=== PATIENT | female | born 1995 | race American Indian/Alaskan Native ===

== ENCOUNTER 2017-06-13 13:47 | Emergency (ER) | payer SELFPAY ==
[2017-06-13 14:12] VITALS: BP 130/84
[2017-06-13] MEDS ORDERED: MOTRIN PO ONE (15:05)
--- NOTE | 2017-06-13 15:07 | Emergency Department Report ---
ED Extremity Problem HPI - General Chief complaint: Extremity Injury, Lower Stated complaint: FOOT PAIN Time Seen by Provider: 06/13/17 14:46 Source: patient, family Mode of arrival: Ambulatory Limitations: No Limitations - History of Present Illness Initial comments: This is a very large obese female here complaining of swelling to her right foot 3 years. She says she's been to the ER and also be been to doctor's appointment and they did not do anything. She denies any history of x-ray to her right foot or ultrasound to her lower extremities. She says she has a doctor's appointment in August for chronic foot pain and swelling. Pain is 10 out of 10 worse with weightbearing and movement otherwise resting. She's been taking [id number] medication which helps a little. Patient says she came to the emergency room today because of increasing pain and she denies any previous trauma to her foot. Denies any redness or swelling, denies any laceration. She is also complaining of pain to the bottom number for right foot. Pain is achy. Denies any history of blood clots denies any control. Last menstrual period was 06/12/2017. Denies any shortness of breath or chest pain. MD Complaint: extremity pain, extremity swelling Onset/Timin -: year(s) Location: right, lower extremity (foot) History of Same: Yes -: No myalgia, Yes arthralgia, No fever, No associated dyspnea, No associated chest pain Radiation: none Severity scale (0 -10): 10 Quality: aching Consistency: constant Improves with: immobilization, medication, rest Worsens with: weight bearing, walking, exertion Associated Symptoms: arthralgias. denies: chest pain, shortness of breath, fever, myalgias, rash - Related Data Previous Rx's Medication Instructions Recorded Last Taken Type Cyclobenzaprine HCl [Flexeril 5 MG 5 mg PO Q8HR PRN #10 tab 10/13/15 Unknown Rx TAB] Ibuprofen [Motrin] 600 mg PO Q8H PRN #12 tablet 06/13/17 Unknown Rx Allergies Allergy/AdvReac Type Severity Reaction Status Date / Time No Known Allergies Allergy Verified 10/13/15 20:18 ED Review of Systems ROS: Stated complaint: FOOT PAIN Other details as noted in HPI Comment: All other systems reviewed and negative Constitutional: no symptoms reported Respiratory: no symptoms reported Cardiovascular: denies: chest pain, palpitations, dyspnea on exertion, edema, syncope, paroxysmal nocturnal dyspnea Gastrointestinal: denies: abdominal pain, nausea, vomiting Genitourinary: denies: dysuria, hematuria Musculoskeletal: joint swelling, arthralgia. denies: back pain, myalgia Skin: denies: rash Neurological: denies: headache, weakness, numbness, paresthesias, confusion, abnormal gait, vertigo ED Past Medical Hx - Past Medical History Previous Medical History?: Yes Hx Diabetes: Yes (boarderline) Hx Asthma: Yes - Surgical History Past Surgical History?: No - Family History Family history: no significant - Social History Smoking Status: Current Every Day Smoker Substance Use Type: None - Medications Home Medications: Home Medications Medication Instructions Recorded Confirmed Last Taken Type Cyclobenzaprine HCl [Flexeril 5 MG 5 mg PO Q8HR PRN #10 tab 10/13/15 Unknown Rx TAB] Ibuprofen [Motrin] 600 mg PO Q8H PRN #12 tablet 06/13/17 Unknown Rx ED Physical Exam - General Limitations: No Limitations General appearance: alert, in no apparent distress - Head Head exam: Present: atraumatic, normocephalic - Eye Eye exam: Present: normal appearance, PERRL, EOMI Pupils: Present: normal accommodation - ENT ENT exam: Present: normal exam, normal orophraynx, mucous membranes moist, TM's normal bilaterally, normal external ear exam - Neck Neck exam: Present: normal inspection, full ROM. Absent: tenderness, meningismus, lymphadenopathy - Respiratory Respiratory exam: Present: normal lung sounds bilaterally. Absent: respiratory distress, wheezes, rales, rhonchi, stridor, chest wall tenderness, accessory muscle use, decreased breath sounds, prolonged expiratory - Cardiovascular Cardiovascular Exam: Present: regular rate, normal rhythm, normal heart sounds. Absent: systolic murmur, diastolic murmur - GI/Abdominal GI/Abdominal exam: Present: soft, normal bowel sounds. Absent: distended, tenderness, rigid, organomegaly, mass, bruit, pulsatile mass, hernia - Extremities Exam Extremities exam: Present: full ROM, tenderness (right anterior foot), normal capillary refill, pedal edema (right anterior foot), other (abdomen and cyanosis. +2 pulses to all extremities. No neurovascular compromise). Absent : normal inspection, joint swelling, calf tenderness - Expanded Lower Extremity Exam Right Hip exam: Present: normal inspection, full ROM, pelvic stability. Absent: tenderness, swelling, abrasion, laceration, ecchymosis, deformity, crepidus, dislocation, erythema, external rotation, internal rotation, shortening Upper Leg exam: Present: normal inspection, full ROM. Absent: tenderness, swelling, abrasion, laceration, ecchymosis, deformity, crepidus, dislocation, erythema Knee exam: Present: normal inspection, full ROM, full knee extension. Absent: tenderness, swelling, abrasion, laceration, ecchymosis, deformity, crepidus, dislocation, erythema, effusion, pain w/ pronation/supination, posterior draw sign, pain/laxity with valgus, pain/laxity with varus Lower Leg exam: Present: normal inspection, full ROM. Absent: tenderness, swelling, abrasion, laceration, ecchymosis, deformity, crepidus, dislocation, erythema, palpable cord, Sujey's sign Ankle exam: Present: normal inspection, full ROM. Absent: tenderness, swelling , abrasion, laceration, ecchymosis, deformity, crepidus, dislocation, erythema Foot/Toe exam: Present: full ROM, tenderness (right anterior foot), swelling ( right dorsal aspect of foot). Absent: normal inspection, abrasion, laceration, ecchymosis, deformity, crepidus, dislocation, erythema, amputation, puncture wound, foreign body, calcaneal tenderness, tenderness at base of 5th metatarsal , nail avulsion, subungual hematoma Neuro vascular tendon exam: Present: no vascular compromise. Absent: pulse deficit, abnormal cap refill, motor deficit, sensory deficit, tendon deficit, extremity cold to touch, pallor, abnormal 2-point discrimination, decreased fine /light touch, foot drop, peroneal nerve deficit, significant pain with passive ROM of distal joint Gait: Positive: observed and limited by pain - Back Exam Back exam: Present: normal inspection, full ROM, other (patient ambulated without any difficulties). Absent: tenderness, CVA tenderness (R), CVA tenderness (L), muscle spasm, paraspinal tenderness, vertebral tenderness, rash noted - Neurological Exam Neurological exam: Present: alert, oriented X3, normal gait, reflexes normal - Psychiatric Psychiatric exam: Present: normal affect, normal mood - Skin Skin exam: Present: warm, dry, intact, normal color. Absent: rash ED Course Vital Signs 06/13/17 06/13/17 06/13/17 14:09 15:16 15:32 Temperature 98.2 F Pulse Rate 105 H Respiratory 16 18 18 Rate Blood Pressure 130/84 O2 Sat by Pulse 97 Oximetry 06/13/17 16:52 Temperature Pulse Rate 88 Respiratory Rate Blood Pressure O2 Sat by Pulse Oximetry - Reevaluation(s) Reevaluation #1: 06/13/17 15:50 D-dimer normal level. Patient was given Motrin 800 mg by mouth for right foot pain and still awaiting an x-ray of right foot. Reevaluation #2: 06/13/17 16:59 Patient stable. See procedure note for splint due to swelling. No fracture or dislocation - Orthopedic Splinting/Casting Injury #1 Side: right Lower Extremity Injury Location: foot Lower Extremity Immobilizer: Fabrice wrap Additional Comments: Patient with good color, movement, sensation and temperature to both feet. +2 and bounding pulses status post Fabrice wrap to right foot. ED Medical Decision Making - Lab Data PT/INR, D-dimer D-Dimer 173.20 ng/mlDDU (0-234) 06/13/17 15:13 - Radiology Data Radiology results: report reviewed X-ray of right foot reveals diffuse soft tissue swelling without any fracture or dislocation - Medical Decision Making ED course: Patient here reports that she's been having right foot swelling without any history of injury over the past 3 years. She told me that she had never had any x-rays or ultrasound of her lower extremity. Her medical record shows the patient had lower extremity. Reports shows the patient had ultrasound of her right lower extremity due to complaints of pain and swelling in 2015. Patient could not remember. D-dimer today is negative. Physical findings for swelling will mild tenderness to palpate to right foot. X-ray report reveals no fracture or dislocation but diffuse soft tissue swelling. Patient has no erythema and she is able to weight-bear 4 over the past 3 years despite foot pain and swelling. She has been going to many different facility. Patient says she has an appointment 08/09/2017 for follow-up visit for right foot swelling with primary care physician. Her vital signs are stable and she is a febrile. X-ray results along with blood tested patient and she voiced understanding. Please refer to procedure note for details on splinting. Patient encouraged to elevate affected area when she stated no lying down. She was given Motrin 800 mg by mouth in emergency room for pain. She says she feels better. Patient discharged home with prescription for Motrin and to follow-up with orthopedic doctor and to keep her primary care visit in August 2017. Critical care attestation.: If time is entered above; I have spent that time in minutes in the direct care of this critically ill patient, excluding procedure time. ED Disposition Clinical Impression: Swelling of toe of right foot, Arthralgia of right foot Disposition: DC- TO HOME OR SELFCARE Is pt being admited?: No Does the pt Need Aspirin: No Condition: Stable Instructions: Arthralgia (ED) Additional Instructions: Rt foot x-ray shows that he has no broken bones and she have soft tissue swelling to right foot. She will need to follow up with orthopedic doctor and also her primary care physician as he said he have an appointment in August 2017. Please elevate right foot when sitting and lying down. Take Motrin and this will help with inflammation and pain. Prescriptions: Ibuprofen [Motrin] 600 mg PO Q8H PRN #12 tablet PRN Reason: Pain Referrals: PRIMARY CAREMD [Primary Care Provider] - 2-3 Days OBI MCDONALD MD [Staff Physician] - 2-3 Days Forms: Work/School Release Form(ED)
--- NOTE | 2017-06-13 16:54 | XRay Report ---
FINAL REPORT PROCEDURE: XR FOOT 3+V RT TECHNIQUE: Right foot, three views HISTORY: Right foot swelling without injury COMPARISON: No prior studies are available for comparison. FINDINGS: There is diffuse soft tissue swelling. No fracture or joint dislocation is seen. No radiopaque foreign body is seen. IMPRESSION: No acute fracture is identified
== END 2017-06-13 17:21 | disposition home or self-care (01) ==
LOC: ED 13:47
DX: M79.671 Pain in right foot (principal); J45.909 Unspecified asthma, uncomplicated; E11.9 Type 2 diabetes mellitus without complications; F17.200 Nicotine dependence, unspecified, uncomplicated
CPT/HCPCS: 36415; 85379; 99284

== ENCOUNTER 2017-09-23 18:10 | Emergency (ER) | payer SELFPAY ==
[2017-09-23 18:32] VITALS: BP 164/86
[2017-09-23 18:51] LABS: Basophils % (Auto) 0.8 % (0.0-1.8); Eosinophils # (Auto) 0.1 K/mm3 (0.0-0.4); Eosinophils % (Auto) 1.6 % (0.0-4.3); Hematocrit 41.7 % (30.3-42.9); Hemoglobin 13.9 gm/dl (10.1-14.3); Lymphocytes # (Auto) 2.6 K/mm3 (1.2-5.4); Lymphocytes % (Auto) 41.4 % (13.4-35.0); Mean Corpuscular HGB Conc 33 % (30-34); Mean Corpuscular Hemoglobin 31 pg (28-32); Mean Corpuscular Volume 94 fl (79-97); Monocytes # (Auto) 0.4 K/mm3 (0.0-0.8); Monocytes % (Auto) 6.1 % (0.0-7.3); Platelet Count 204 K/mm3 (140-440); Red Blood Count 4.44 M/mm3 (3.65-5.03); Red Cell Distribution Width 13.4 % (13.2-15.2)
[2017-09-23 19:10] LABS: Alanine Aminotransferase 17 units/L (7-56); Albumin 3.9 g/dL (3.9-5); BUN/Creatinine Ratio 9; Blood Urea Nitrogen 7 mg/dL (7-17); Calcium 9.6 mg/dL (8.4-10.2); Hemolysis Index 22
[2017-09-23 19:22] LABS: Bilirubin,Urine NEG (Negative); Blood,Urine NEG (Negative); Color,Urine Yellow (Yellow); Mucus,Urine FEW /HPF; Protein,Urine <15 mg/dL mg/dL (Negative)
== END 2017-09-23 22:30 | disposition left against medical advice (07) ==
LOC: ED 18:10
DX: R12 Heartburn (principal); K92.0 Hematemesis; F17.200 Nicotine dependence, unspecified, uncomplicated; Z53.21 Procedure and treatment not carried out due to patient leaving prior to being seen by health care provider
CPT/HCPCS: 36415; 80053; 81001; 84703; 85025; 93005; 93010

== ENCOUNTER 2019-05-05 14:38 | Emergency (ER) | payer SELFPAY ==
--- NOTE | 2019-05-05 16:29 | Event Note ---
ED Screening Note ED Screening Note: 23 yo female with 3 months of vaginal bleeding, now generalized weakness fatigue This initial assessment/diagnostic orders/clinical plan/treatment(s) is/are subject to change based on patients health status, clinical progression and re- assessment by fellow clinical providers in the ED. Further treatment and workup at subsequent clinical providers discretion. Patient/guardian urged not to elope from the ED as their condition may be serious if not clinically assessed and managed. Initial orders include: labs
[2019-05-05 16:30] VITALS: BP 118/96
[2019-05-05 17:23] LABS: Basophils # (Auto) 0.1 K/mm3 (0.0-0.1); Basophils % (Auto) 1.2 % (0.0-1.8); Eosinophils # (Auto) 0.1 K/mm3 (0.0-0.4); Eosinophils % (Auto) 1.5 % (0.0-4.3); Hematocrit 36.6 % (30.3-42.9); Hemoglobin 12.1 gm/dl (10.1-14.3); Lymphocytes # (Auto) 2.4 K/mm3 (1.2-5.4); Lymphocytes % (Auto) 28.6 % (13.4-35.0); Mean Corpuscular HGB Conc 33 % (30-34); Mean Corpuscular Volume 91 fl (79-97); Monocytes # (Auto) 0.5 K/mm3 (0.0-0.8); Monocytes % (Auto) 6.2 % (0.0-7.3); Platelet Count 242 K/mm3 (140-440); Red Blood Count 4.01 M/mm3 (3.65-5.03)
[2019-05-05 17:44] LABS: BUN/Creatinine Ratio 9; Blood Urea Nitrogen 9 mg/dL (7-17); Calcium 9.2 mg/dL (8.4-10.2); Hemolysis Index 16
--- NOTE | 2019-05-05 18:11 | Emergency Department Report ---
ED Female HPI - General Chief complaint: Vaginal Bleeding Stated complaint: BLEEDING X3 MONTH/WEAK Time Seen by Provider: 05/05/19 16:28 Source: patient Mode of arrival: Ambulatory Limitations: No Limitations - History of Present Illness Initial comments: cc: "I am just so tired of bleeding. 23 yo female with 3 months of vaginal bleeding. Not sexually active. Mild fatigue. Unknown last pap smear no pain. MD Complaint: vaginal bleeding -: Gradual, month(s) (3) Severity: moderate Consistency: constant Improves with: none Worsens with: none Are you Now?: No Associated Symptoms: other (fatigue) - Related Data Previous Rx's Medication Instructions Recorded Last Taken Type Cyclobenzaprine HCl [Flexeril 5 MG 5 mg PO Q8HR PRN #10 tab 10/13/15 Unknown Rx TAB] Ibuprofen [Motrin] 600 mg PO Q8H PRN #12 tablet 06/13/17 Unknown Rx medroxyPROGESTERone ACETATE 10 mg PO DAILY 10 Days #10 tablet 05/05/19 Unknown Rx [Provera] Allergies Allergy/AdvReac Type Severity Reaction Status Date / Time No Known Allergies Allergy Verified 10/13/15 20:18 ED Review of Systems ROS: Stated complaint: BLEEDING X3 MONTH/WEAK Other details as noted in HPI Comment: All other systems reviewed and negative Constitutional: denies: fever, malaise Respiratory: denies: cough Cardiovascular: denies: chest pain Genitourinary: abnormal menses ED Past Medical Hx - Past Medical History Previous Medical History?: Yes Hx Diabetes: Yes (borderline) Hx Asthma: Yes - Surgical History Past Surgical History?: No - Family History Family history: no significant - Social History Smoking Status: Never Smoker Substance Use Type: None - Medications Home Medications: Home Medications Medication Instructions Recorded Confirmed Last Taken Type Cyclobenzaprine HCl [Flexeril 5 MG 5 mg PO Q8HR PRN #10 tab 10/13/15 Unknown Rx TAB] Ibuprofen [Motrin] 600 mg PO Q8H PRN #12 tablet 06/13/17 Unknown Rx medroxyPROGESTERone ACETATE 10 mg PO DAILY 10 Days #10 tablet 05/05/19 Unknown Rx [Provera] ED Physical Exam - General Limitations: No Limitations General appearance: alert, in no apparent distress - Head Head exam: Present: atraumatic, normocephalic - Eye Eye exam: Present: normal appearance - ENT ENT exam: Present: mucous membranes moist - Neck Neck exam: Present: normal inspection, full ROM - Respiratory Respiratory exam: Present: normal lung sounds bilaterally. Absent: respiratory distress, wheezes, rales - Cardiovascular Cardiovascular Exam: Present: regular rate, normal rhythm. Absent: systolic murmur, diastolic murmur, rubs, gallop - GI/Abdominal GI/Abdominal exam: Present: soft, normal bowel sounds. Absent: distended, tenderness, guarding, rebound - Extremities Exam Extremities exam: Present: normal inspection - Neurological Exam Neurological exam: Present: alert, oriented X3 - Psychiatric Psychiatric exam: Present: normal affect, normal mood - Skin Skin exam: Present: warm, dry, intact, normal color. Absent: rash ED Course Vital Signs 05/05/19 16:28 Temperature 98.9 F Pulse Rate 110 H Blood Pressure 118/96 O2 Sat by Pulse 20 L Oximetry ED Medical Decision Making - Lab Data Result diagrams: 05/05/19 16:57 05/05/19 16:57 Laboratory Results - last 24 hr 05/05/19 05/05/19 05/05/19 16:57 16:57 16:57 WBC 8.2 RBC 4.01 Hgb 12.1 Hct 36.6 MCV 91 MCH 30 MCHC 33 RDW 14.0 Plt Count 242 Lymph % (Auto) 28.6 [place] % (Auto) 6.2 Eos % (Auto) 1.5 Baso % (Auto) 1.2 Lymph # 2.4 [place] # 0.5 Eos # 0.1 Baso # 0.1 Seg Neutrophils % 62.5 Seg Neutrophils # 5.1 Sodium 141 Potassium 3.9 Chloride 103.7 Carbon Dioxide 22 Anion Gap 19 BUN 9 Creatinine 1.0 Estimated GFR > 60 BUN/Creatinine Ratio 9 Glucose 99 Calcium 9.2 HCG, Qual Negative - Medical Decision Making dysfunctional uterine bleeding negative cbc bmp WNL no anemia referred to [facility] her medical home Critical care attestation.: If time is entered above; I have spent that time in minutes in the direct care of this critically ill patient, excluding procedure time. ED Disposition Clinical Impression: Dysfunctional uterine bleeding Disposition: DC-01 TO HOME OR SELFCARE Is pt being admited?: No Does the pt Need Aspirin: No Condition: Good Instructions: Dysfunctional Uterine Bleeding (ED) Prescriptions: medroxyPROGESTERone ACETATE [Provera] 10 mg PO DAILY 10 Days #10 tablet Referrals: [facility] MD GLADYS [Primary Care Provider] - 3-5 Days
== END 2019-05-05 18:12 | disposition home or self-care (01) ==
LOC: ED 14:38
DX: N93.8 Other specified abnormal uterine and vaginal bleeding (principal); J45.909 Unspecified asthma, uncomplicated; E11.9 Type 2 diabetes mellitus without complications; Z79.899 Other long term (current) drug therapy
CPT/HCPCS: 36415; 80048; 84703; 85025; 99283

== ENCOUNTER 2020-01-11 10:55 | Emergency (ER) | payer SELFPAY ==
[2020-01-11 11:00] VITALS: BP 156/71
--- NOTE | 2020-01-11 11:45 | Emergency Department Report ---
ED Female HPI - General Chief complaint: Vaginal Bleeding Stated complaint: VAGINAL BLEED Time Seen by Provider: 01/11/20 11:10 Source: patient Mode of arrival: Ambulatory Limitations: No Limitations - History of Present Illness Initial comments: This is a pleasant 24-year-old female presents to the emergency department with a chief complaint of vaginal bleeding for the past 5 days. She also reports that when she urinates she will noticed some pressure in her lower abdomen and dysuria. She denies any associated nausea, vomiting, diarrhea, fever, chills, night sweats, headache, dizziness, blurry vision, chest pain, shortness of breath. She denies any known past medical history, current medication use or known allergies to medications. She denies any previous surgeries. Her last menstrual cycle was on December 20 and normal. She does report she has had a history of abnormal cycles in the past and bled for nearly a month previously. - Related Data Previous Rx's Medication Instructions Recorded Last Taken Type Cyclobenzaprine HCl [Flexeril 5 MG 5 mg PO Q8HR PRN #10 tab 10/13/15 Unknown Rx TAB] Ibuprofen [Motrin] 600 mg PO Q8H PRN #12 tablet 06/13/17 Unknown Rx medroxyPROGESTERone ACETATE 10 mg PO DAILY 10 Days #10 tablet 05/05/19 Unknown Rx [Provera] Ibuprofen [Motrin 800 MG tab] 800 mg PO Q8HR #30 tablet 01/11/20 Unknown Rx Allergies Allergy/AdvReac Type Severity Reaction Status Date / Time No Known Allergies Allergy Verified 10/13/15 20:18 ED Review of Systems ROS: Stated complaint: VAGINAL BLEED Other details as noted in HPI Comment: All other systems reviewed and negative Constitutional: denies: chills, fever Eyes: denies: eye pain, eye discharge, vision change ENT: denies: ear pain, throat pain Respiratory: denies: cough, shortness of breath, wheezing Cardiovascular: denies: chest pain, palpitations Endocrine: no symptoms reported Gastrointestinal: as per HPI, abdominal pain. denies: nausea, diarrhea Genitourinary: as per HPI, dysuria, frequency. denies: urgency, discharge Musculoskeletal: denies: back pain, joint swelling, arthralgia Skin: denies: rash, lesions Neurological: denies: headache, weakness, paresthesias Psychiatric: denies: anxiety, depression Hematological/Lymphatic: denies: easy bleeding, easy bruising ED Past Medical Hx - Past Medical History Previous Medical History?: Yes Hx Diabetes: Yes (borderline) Hx Asthma: Yes - Surgical History Past Surgical History?: No - Social History Smoking Status: Never Smoker Substance Use Type: None - Medications Home Medications: Home Medications Medication Instructions Recorded Confirmed Last Taken Type Cyclobenzaprine HCl [Flexeril 5 MG 5 mg PO Q8HR PRN #10 tab 10/13/15 Unknown Rx TAB] Ibuprofen [Motrin] 600 mg PO Q8H PRN #12 tablet 06/13/17 Unknown Rx medroxyPROGESTERone ACETATE 10 mg PO DAILY 10 Days #10 tablet 05/05/19 Unknown Rx [Provera] Ibuprofen [Motrin 800 MG tab] 800 mg PO Q8HR #30 tablet 01/11/20 Unknown Rx ED Physical Exam - General Limitations: No Limitations General appearance: alert, in no apparent distress - Head Head exam: Present: atraumatic, normocephalic - Eye Eye exam: Present: normal appearance, PERRL, EOMI Pupils: Present: normal accommodation - ENT ENT exam: Present: normal exam, normal orophraynx, mucous membranes moist - Neck Neck exam: Present: normal inspection, full ROM. Absent: tenderness, meningismus - Respiratory Respiratory exam: Present: normal lung sounds bilaterally. Absent: respiratory distress, wheezes, rales, rhonchi, stridor - Cardiovascular Cardiovascular Exam: Present: regular rate, normal rhythm, normal heart sounds. Absent: systolic murmur, diastolic murmur, rubs, gallop - GI/Abdominal GI/Abdominal exam: Present: soft, tenderness (Mild suprapubic tenderness palpation, no rebound or guarding.), normal bowel sounds. Absent: distended, guarding, rebound, rigid - Extremities Exam Extremities exam: Present: normal inspection, full ROM, normal capillary refill. Absent: tenderness - Back Exam Back exam: Present: normal inspection, full ROM. Absent: tenderness, CVA tenderness (R), CVA tenderness (L) - Neurological Exam Neurological exam: Present: alert, oriented X3, normal gait - Psychiatric Psychiatric exam: Present: normal affect, normal mood - Skin Skin exam: Present: warm, dry, intact, normal color. Absent: rash ED Course Vital Signs 01/11/20 10:56 Temperature 98.6 F Pulse Rate 109 H Respiratory 18 Rate Blood Pressure 156/71 O2 Sat by Pulse 98 Oximetry ED Medical Decision Making - Lab Data Result diagrams: 01/11/20 12:01/11/20 12: Lab Results 01/11/20 01/11/20 01/11/20 Range/Units 12: 12: 12: WBC 5.7 (4.5-11.0) K/mm3 RBC 4.21 (3.65-5.03) M/mm3 Hgb 12.0 (10.1-14.3) gm/dl Hct 36.4 (30.3-42.9) % MCV 86 (79-97) fl MCH 28 (28-32) pg MCHC 33 (30-34) % RDW 15.6 H (13.2-15.2) % Plt Count 205 (140-440) K/mm3 Lymph % (Auto) 26.2 (13.4-35.0) % [place] % (Auto) 4.8 (0.0-7.3) % Eos % (Auto) 1.9 (0.0-4.3) % Baso % (Auto) 1.7 (0.0-1.8) % Lymph # (Auto) 1.5 (1.2-5.4) K/mm3 [place] # (Auto) 0.3 (0.0-0.8) K/mm3 Eos # (Auto) 0.1 (0.0-0.4) K/mm3 Baso # (Auto) 0.1 (0.0-0.1) K/mm3 Seg Neutrophils % 65.4 (40.0-70.0) % Seg Neutrophils # 3.7 (1.8-7.7) K/mm3 Sodium 138 (137-145) mmol/L Potassium 3.9 (3.6-5.0) mmol/L Chloride 104.3 (98-107) mmol/L Carbon Dioxide 28 (22-30) mmol/L Anion Gap 10 mmol/L BUN 7 (7-17) mg/dL Creatinine 0.9 (0.6-1.2) mg/dL Estimated GFR > 60 ml/min BUN/Creatinine Ratio 8 % Glucose 147 H (65-100) mg/dL Calcium 9.1 (8.4-10.2) mg/dL Total Bilirubin 0.20 (0.1-1.2) mg/dL AST 15 (5-40) units/L ALT 12 (7-56) units/L Alkaline Phosphatase 61 (35-129) units/L Total Protein 7.0 (6.3-8.2) g/dL Albumin 3.8 L (3.9-5) g/dL Albumin/Globulin Ratio 1.2 % HCG, Qual Negative (Negative) Urine Color (Yellow) Urine Turbidity (Clear) Urine pH (5.0-7.0) Ur Specific [place] (1.003-1.030) Urine Protein (Negative) mg/dL Urine Glucose (UA) (Negative) mg/dL Urine Ketones (Negative) mg/dL Urine Blood (Negative) Urine Nitrite (Negative) Urine Bilirubin (Negative) Urine Urobilinogen (<2.0) mg/dL Ur Leukocyte Esterase (Negative) Urine WBC (Auto) (0.0-6.0) /HPF Urine RBC (Auto) (0.0-6.0) /HPF U Epithel Cells (Auto) (0-13.0) /HPF Urine Bacteria (Auto) (Negative) /HPF Urine Mucus /HPF 01/11/20 Range/Units 13:32 WBC (4.5-11.0) K/mm3 RBC (3.65-5.03) M/mm3 Hgb (10.1-14.3) gm/dl Hct (30.3-42.9) % MCV (79-97) fl MCH (28-32) pg MCHC (30-34) % RDW (13.2-15.2) % Plt Count (140-440) K/mm3 Lymph % (Auto) (13.4-35.0) % [place] % (Auto) (0.0-7.3) % Eos % (Auto) (0.0-4.3) % Baso % (Auto) (0.0-1.8) % Lymph # (Auto) (1.2-5.4) K/mm3 [place] # (Auto) (0.0-0.8) K/mm3 Eos # (Auto) (0.0-0.4) K/mm3 Baso # (Auto) (0.0-0.1) K/mm3 Seg Neutrophils % (40.0-70.0) % Seg Neutrophils # (1.8-7.7) K/mm3 Sodium (137-145) mmol/L Potassium (3.6-5.0) mmol/L Chloride (98-107) mmol/L Carbon Dioxide (22-30) mmol/L Anion Gap mmol/L BUN (7-17) mg/dL Creatinine (0.6-1.2) mg/dL Estimated GFR ml/min BUN/Creatinine Ratio % Glucose (65-100) mg/dL Calcium (8.4-10.2) mg/dL Total Bilirubin (0.1-1.2) mg/dL AST (5-40) units/L ALT (7-56) units/L Alkaline Phosphatase (35-129) units/L Total Protein (6.3-8.2) g/dL Albumin (3.9-5) g/dL Albumin/Globulin Ratio % HCG, Qual (Negative) Urine Color Yellow (Yellow) Urine Turbidity Hazy (Clear) Urine pH 6.0 (5.0-7.0) Ur Specific [place] 1.023 (1.003-1.030) Urine Protein 30 mg/dl (Negative) mg/dL Urine Glucose (UA) Neg (Negative) mg/dL Urine Ketones Neg (Negative) mg/dL Urine Blood Lg (Negative) Urine Nitrite Neg (Negative) Urine Bilirubin Neg (Negative) Urine Urobilinogen 2.0 (<2.0) mg/dL Ur Leukocyte Esterase Sm (Negative) Urine WBC (Auto) 23.0 H (0.0-6.0) /HPF Urine RBC (Auto) > 182.0 (0.0-6.0) /HPF U Epithel Cells (Auto) 5.0 (0-13.0) /HPF Urine Bacteria (Auto) 1+ (Negative) /HPF Urine Mucus Few /HPF - Radiology Data Radiology results: report reviewed, image reviewed Ultrasound Report Signed Patient: STEVE LARSON MR# : [id number] : 1995 Acct:[id number] Age/Sex: 24 / F ADM Date: 01/11/20 Loc: ED Attending Dr: Ordering Physician: MADI INTERIANO MD Date of Service: 01/11/20 Procedure(s): US transvaginal Accession Number(s): [id number] cc: MADI INTERIANO MD CLINICAL DATA: VAG BLEEDING TECHNICAL DATA: Ultrasound, pelvic (nonobstetric), real-time with image documentation; transabdominal and transvaginal imaging with Doppler was performed. FINDINGS: The uterus is of normal size and echogenicity. There are no uterine masses. Endometrial thickness is 1.3 cm The right and left ovaries are of symmetric size and echogenicity. There are no ovarian or adnexal masses. Doppler imaging demonstrates normal vascular flow to both ovaries. There is no significant quantity of free fluid dependently within the pelvis. IMPRESSION: Thickened endometrium recommend clinical correlation. GUIDELINES FOR IMAGING OF OVARIAN--ADNEXAL CYST: WOMEN OF REPRODUCTIVE AGE: 1. Cysts <=3 cm: Normal physiologic findings; at the discretion of the interpreting physician whether or not to describe them in the imaging report; do not need follow-up. 2. Cysts >3 and <=5 cm: Should be described in the imaging report with a statement that they are almost certainly benign; do not need follow-up. 3. Cysts >5 and <=7 cm: Should be described in the imaging report with a statement that they are almost certainly benign; yearly follow-up with US recommended. 4. Cysts >7 cm: Since these may be difficult to assess completely with US, further imaging with magnetic resonance (MR) or surgical evaluation should be considered. POSTMENOPAUSAL WOMEN: 1. Cysts <=1 cm: Are clinically inconsequential; at the discretion of the interpreting physician whether or not to describe them in the imaging report; do not need follow-up. 2. Cysts >1 and <=7 cm: Should be described in the imaging report with statement that they are almost certainly benign; yearly follow-up, at least initially, with US r ecommended. Some practices may opt to increase the lower size threshold for follow-up from 1 cm to as high as 3 cm. One may opt to continue follow-up annually or to decrease the frequency of follow-up once stability or decrease in size has been confirmed. Cysts in the larger end of this range should still generally be followed on a regular basis. 3. Cysts >7 cm: Since these may be difficult to assess completely with US, further imaging with MR or surgical evaluation should be considered. Signer Name: Enrique Nichole MD Signed: 01/11/2020 4:12 PM Workstation Name: [id number] Transcribed By: WG Dictated By: Enrique Nichole MD Electronically Authenticated By: Enrique Nichole MD Signed Date/Time: 01/11/20 1612 - Medical Decision Making Patient is hemodynamically stable and in no acute distress. Vital signs are stable. Her H&H is normal. Her ultrasound was unremarkable other than thickened endometrium which is expected. We will send the patient home with anti-inflammatories and [employer] follow-up. Recommend she return to the [facility] department any change or worsening symptoms. She verbalized understand the diagnosis, treatment plan and follow-up instructions and all of her questions were answered. - Differential Diagnosis Dysmenorrhea, ectopic , threatened miscarriage Critical care attestation.: If time is entered above; I have spent that time in minutes in the direct care of this critically ill patient, excluding procedure time. ED Disposition Clinical Impression: Menorrhagia Qualifiers: Menorrhagia type: with irregular cycle Qualified Code(s): N92.1 - Excessive and frequent menstruation with irregular cycle Disposition: DC-01 TO HOME OR SELFCARE Is pt being admited?: No Condition: Stable Instructions: Abnormal Uterine Bleeding Prescriptions: Ibuprofen [Motrin 800 MG tab] 800 mg PO Q8HR #30 tablet Referrals: PRIMARY CAREMD [Primary Care Provider] - 3-5 Days SARA MOBLEY MD [Staff Physician] - 3-5 Days Forms: Work/School Release Form(ED) Time of Disposition: 16:21
[2020-01-11 12:44] LABS: Basophils # (Auto) 0.1 K/mm3 (0.0-0.1); Basophils % (Auto) 1.7 % (0.0-1.8); Eosinophils # (Auto) 0.1 K/mm3 (0.0-0.4); Eosinophils % (Auto) 1.9 % (0.0-4.3); Hematocrit 36.4 % (30.3-42.9); Lymphocytes # (Auto) 1.5 K/mm3 (1.2-5.4); Lymphocytes % (Auto) 26.2 % (13.4-35.0); Mean Corpuscular HGB Conc 33 % (30-34); Mean Corpuscular Volume 86 fl (79-97); Monocytes # (Auto) 0.3 K/mm3 (0.0-0.8); Monocytes % (Auto) 4.8 % (0.0-7.3); Platelet Count 205 K/mm3 (140-440); Red Blood Count 4.21 M/mm3 (3.65-5.03); Red Cell Distribution Width 15.6 % (13.2-15.2)
[2020-01-11 13:07] LABS: Alanine Aminotransferase 12 units/L (7-56); Albumin 3.8 g/dL (3.9-5); BUN/Creatinine Ratio 8; Blood Urea Nitrogen 7 mg/dL (7-17); Calcium 9.1 mg/dL (8.4-10.2); Hemolysis Index 3
[2020-01-11 14:10] LABS: Bacteria,Urine 1+ /HPF (Negative); Bilirubin,Urine NEG (Negative); Blood,Urine LG (Negative); Color,Urine Yellow (Yellow); Mucus,Urine FEW /HPF
[2020-01-11 14:13] LABS: RBC,Urine > 182.0 /HPF (0.0-6.0)
--- NOTE | 2020-01-11 16:16 | Ultrasound Report ---
CLINICAL DATA: VAG BLEEDING TECHNICAL DATA: Ultrasound, pelvic (nonobstetric), real-time with image documentation; transabdominal and transvagina l imaging with Doppler was performed. FINDINGS: The uterus is of normal size and echogenicity. There are no uterine masses. Endometrial thickness is 1.3 cm The right and left ovaries are of symmetric size and echogenicity. There are no ovarian or adnexal ma sses. Doppler imaging demonstrates normal vascular flow to both ovaries. There is no significant quantity of free fluid dependently within the pelvis. IMPRESSION: Thickened endometrium recommend clinical correlation. GUIDELINES FOR IMAGING OF OVARIAN--ADNEXAL CYST: WOMEN OF REPRODUCTIVE AGE: 1. Cysts <=3 cm: Normal physiologic findings; at the discretion of the interpreting physician whether or not to describe them in the imaging report; do not need follow-up. 2. Cysts >3 and <=5 cm: Should be described in the imaging report with a statement that they are almo st certainly benign; do not need follow-up. 3. Cysts >5 and <=7 cm: Should be described in the imaging report with a statement that they are almo st certainly benign; yearly follow-up with US recommended. 4. Cysts >7 cm: Since these may be difficult to assess completely with US, further imaging with magne tic resonance (MR) or surgical evaluation should be considered. POSTMENOPAUSAL WOMEN: 1. Cysts <=1 cm: Are clinically inconsequential; at the discretion of the interpreting physician whet her or not to describe them in the imaging report; do not need follow-up. 2. Cysts >1 and <=7 cm: Should be described in the imaging report with statement that they are almost certainly benign; yearly follow-up, at least initially, with US recommended. Some practices may opt to increase the lower size threshold for follow-up from 1 cm to as high as 3 cm. One may opt to terrence nue follow-up annually or to decrease the frequency of follow-up once stability or decrease in size h as been confirmed. Cysts in the larger end of this range should still generally be followed on a regu lar basis. 3. Cysts >7 cm: Since these may be difficult to assess completely with US, further imaging with MR or surgical evaluation should be considered. Signer Name: Enrique Nichole MD Signed: 01/11/2020 4:12 PM Workstation Name: [employer]
== END 2020-01-11 16:48 | disposition home or self-care (01) ==
LOC: ED 10:55
DX: N92.0 Excessive and frequent menstruation with regular cycle (principal); E11.9 Type 2 diabetes mellitus without complications; J45.909 Unspecified asthma, uncomplicated; Z79.1 Long term (current) use of non-steroidal anti-inflammatories (NSAID); Z79.899 Other long term (current) drug therapy
CPT/HCPCS: 36415; 76830; 76856; 80053; 81001; 84703; 85025; 87086

== ENCOUNTER 2020-02-01 11:24 | Emergency (ER) | payer SELFPAY ==
[2020-02-01] MEDS ORDERED: oxyCODONE /ACETAMINOPHEN 5-325MG TAB PO ONE (13:37)
[2020-02-01] MEDS ORDERED: ONDANSETRON 4 MG ODT TAB PO ONE (13:37)
--- NOTE | 2020-02-01 13:40 | Emergency Department Report ---
ED General Adult HPI - General Chief complaint: Skin/Abscess/Foreign Body Stated complaint: JAW PAIN/BLEEDING Time Seen by Provider: 02/01/20 13:33 Source: patient Mode of arrival: Ambulatory Limitations: No Limitations - History of Present Illness Initial comments: 24-year-old -German female patient presents with complaints of sudden onset of left facial pain and swelling this morning. Patient denies any dental pain, ear pain, difficulty opening her jaw, or dysphagia. She rates her current pain is 8/10 in severity and states it worsens with touch. She denies any fever/chills/sweats or past medical disease - Related Data Previous Rx's Medication Instructions Recorded Last Taken Type Cyclobenzaprine HCl [Flexeril 5 MG 5 mg PO Q8HR PRN #10 tab 10/13/15 Unknown Rx TAB] Ibuprofen [Motrin] 600 mg PO Q8H PRN #12 tablet 06/13/17 Unknown Rx medroxyPROGESTERone ACETATE 10 mg PO DAILY 10 Days #10 tablet 05/05/19 Unknown Rx [Provera] Ibuprofen [Motrin 800 MG tab] 800 mg PO Q8HR #30 tablet 01/11/20 Unknown Rx Acetaminophen/Codeine [Tylenol 1 tab PO Q6H PRN #6 tab 02/01/20 Unknown Rx /Codeine # 3 tab] Clindamycin [Clindamycin CAP] 300 mg PO Q6H 10 Days #40 capsule 02/01/20 Unknown Rx Ibuprofen [Motrin 800 MG tab] 800 mg PO Q8HR PRN #20 tablet 02/01/20 Unknown Rx Allergies Allergy/AdvReac Type Severity Reaction Status Date / Time No Known Allergies Allergy Verified 10/13/15 20:18 ED Review of Systems ROS: Stated complaint: JAW PAIN/BLEEDING Other details as noted in HPI Constitutional: denies: chills, fever, malaise ENT: denies: ear pain, throat pain, dental pain Respiratory: denies: cough, shortness of breath Cardiovascular: denies: chest pain Skin: denies: change in color Neurological: denies: headache, numbness, paresthesias Hematological/Lymphatic: denies: swollen glands ED Past Medical Hx - Past Medical History Hx Diabetes: Yes (borderline) Hx Asthma: Yes - Surgical History Past Surgical History?: No - Social History Smoking Status: Never Smoker - Medications Home Medications: Home Medications Medication Instructions Recorded Confirmed Last Taken Type Cyclobenzaprine HCl [Flexeril 5 MG 5 mg PO Q8HR PRN #10 tab 10/13/15 Unknown Rx TAB] Ibuprofen [Motrin] 600 mg PO Q8H PRN #12 tablet 06/13/17 Unknown Rx medroxyPROGESTERone ACETATE 10 mg PO DAILY 10 Days #10 tablet 05/05/19 Unknown Rx [Provera] Ibuprofen [Motrin 800 MG tab] 800 mg PO Q8HR #30 tablet 01/11/20 Unknown Rx Acetaminophen/Codeine [Tylenol 1 tab PO Q6H PRN #6 tab 02/01/20 Unknown Rx /Codeine # 3 tab] Clindamycin [Clindamycin CAP] 300 mg PO Q6H 10 Days #40 capsule 02/01/20 Unknown Rx Ibuprofen [Motrin 800 MG tab] 800 mg PO Q8HR PRN #20 tablet 02/01/20 Unknown Rx ED Physical Exam - General Limitations: No Limitations General appearance: alert, in no apparent distress, obese - Head Head exam: Present: atraumatic, normocephalic - Eye Eye exam: Present: normal appearance. Absent: scleral icterus - ENT ENT exam: Present: normal orophraynx, TM's normal bilaterally, other (Mild to moderate left lower facial swelling noted without overlying erythema; there is tenderness to palpation) - Neck Neck exam: Present: tenderness (Left submandibular) - Respiratory Respiratory exam: Absent: respiratory distress - Cardiovascular Cardiovascular Exam: Present: regular rate - Neurological Exam Neurological exam: Present: alert, oriented X3 - Psychiatric Psychiatric exam: Present: normal affect, normal mood - Skin Skin exam: Present: warm, dry, intact, normal color. Absent: rash, erythema ED Course Vital Signs 02/01/20 11:40 Temperature 97.8 F Pulse Rate 103 H Respiratory 18 Rate Blood Pressure 146/95 O2 Sat by Pulse 98 Oximetry ED Medical Decision Making - Lab Data Result diagrams: 02/01/20 14:43 02/01/20 14:43 - Radiology Data Radiology results: report reviewed CT neck w con INDICATION / CLINICAL INFORMATION: 24 years Female; MAIN. TECHNIQUE: Contiguous thin cut axial images obtained through the neck following IV contrast. Sagittal and coronal reconstructions performed by the technologist. All CT scans at this location are performed using CT dose reduction for ALARA by means of automated exposure control. COMPARISON: None available. FINDINGS: There are inflammatory changes involving the buccal soft tissues exten ding along the left maxilla. Furthermore, there is mild lucency surrounding the posterior left maxi llary molar and the inflammatory changes would appear to be on an odontogenic basis. Fracture There is no definitive evidence of well-circumscribed fluid collection within this region to indicate abscess on the current study. There is unerupted molar along the posterior left mandible. MUCOSAL SPACE: There is mild prominence of the palatine soft tissues which would appear to reflect lymphoid hypertrophy. There is mild narrowing of the transverse airway at this level. The epiglottis is appropriate in size. There is some motion artifact. However, the laryngeal structures appear fairly symmetric. LYMPH NODES: There are a few jugulodigastric and submandibular region lymph nodes which are most likely reactive. The largest measure approximately 0.8 cm in short axis dimension. SALIVARY GLANDS: The visualized parotid and submandibular glands demonstrate fairly symmetric attenuation without focal calcification. THYROID GLAND: There is notable beam hardening artifact given the patient's body habitus and bony structures along the lower neck. However, the thyroid gland appears to demonstrate appropriate size and contour. PARANASAL SINUSES: There is mild to moderate mucosal thickening along the inferior left maxillary sinus. SPINE: There is mild reversal of the cervical lordosis. The cervical spine otherwise appears unremarkable. VASCULAR STRUCTURES: Vascular structures are grossly normal in appearance. Surrounding soft tissues are otherwise grossly normal. IMPRESSION: 1. There are inflammatory changes involving the left buccal soft tissues which appear to be an odontogenic basis given the mild lucency surrounding the posterior left maxillary molar. No definitive focal fluid collections are identified to indicate abscess on the current exam. - Medical Decision Making 24-year-old -German female patient presents with complaints of sudden onset of left facial pain and swelling this morning. Patient denies any dental pain, ear pain, difficulty opening her jaw, or dysphagia. She rates her current pain is 8/10 in severity and states it worsens with touch. She denies any fever/chills/sweats or past medical disease CT shows inflammatory changes likely odontogenic. Her vitals are normal and she is well-appearing. CBC is normal. Will DC home with clindamycin. Discussed need for follow-up with a dental specialist within 3 days. Patient provided with a dental specialist list. Strict return precautions were discussed in great detail with patient who verbalizes understanding. Critical care attestation.: If time is entered above; I have spent that time in minutes in the direct care of this critically ill patient, excluding procedure time. ED Disposition Clinical Impression: Dental infection Disposition: DC-01 TO HOME OR SELFCARE Is pt being admited?: No Condition: Stable Instructions: Dental Abscess Additional Instructions: Please follow-up with a dental specialist within 3 days. Prescriptions: Clindamycin [Clindamycin CAP] 300 mg PO Q6H 10 Days #40 capsule Ibuprofen [Motrin 800 MG tab] 800 mg PO Q8HR PRN #20 tablet PRN Reason: Pain, Moderate (4-6) Acetaminophen/Codeine [Tylenol /Codeine # 3 tab] 1 tab PO Q6H PRN #6 tab PRN Reason: Pain , Severe (7-10)
[2020-02-01 15:15] LABS: Basophils % (Auto) 0.3 % (0.0-1.8); Eosinophils # (Auto) 0.1 K/mm3 (0.0-0.4); Eosinophils % (Auto) 1.6 % (0.0-4.3); Hematocrit 32.7 % (30.3-42.9); Hemoglobin 10.5 gm/dl (10.1-14.3); Lymphocytes # (Auto) 2.8 K/mm3 (1.2-5.4); Lymphocytes % (Auto) 33.7 % (13.4-35.0); Mean Corpuscular HGB Conc 32 % (30-34); Mean Corpuscular Volume 86 fl (79-97); Monocytes # (Auto) 0.7 K/mm3 (0.0-0.8); Monocytes % (Auto) 8.4 % (0.0-7.3); Platelet Count 232 K/mm3 (140-440); Red Cell Distribution Width 15.9 % (13.2-15.2)
[2020-02-01 15:22] LABS: Alanine Aminotransferase 14 units/L (7-56); Albumin 4.1 g/dL (3.9-5); BUN/Creatinine Ratio 8; Blood Urea Nitrogen 7 mg/dL (7-17); Calcium 9.1 mg/dL (8.4-10.2); Hemolysis Index 0
--- NOTE | 2020-02-01 16:51 | Cat Scan Report ---
CT neck w con INDICATION / CLINICAL INFORMATION: 24 years Female; MAIN. TECHNIQUE: Contiguous thin cut axial images obtained through the neck following IV contrast. Sagittal and todd l reconstructions performed by the technologist. All CT scans at this location are performed using CT dose reduction for ALARA by means of automated exposure control. COMPARISON: None available. FINDINGS: There are inflammatory changes involving the buccal soft tissues extending along the left m axilla. Furthermore, there is mild lucency surrounding the posterior left maxillary molar and the inf lammatory changes would appear to be on an odontogenic basis. Fracture There is no definitive evidenc e of well-circumscribed fluid collection within this region to indicate abscess on the current study. There is unerupted molar along the posterior left mandible. MUCOSAL SPACE: There is mild prominence of the palatine soft tissues which would appear to reflect ly mphoid hypertrophy. There is mild narrowing of the transverse airway at this level. The epiglottis is appropriate in size. There is some motion artifact. However, the laryngeal structures appear fairly symmetric. LYMPH NODES: There are a few jugulodigastric and submandibular region lymph nodes which are most like ly reactive. The largest measure approximately 0.8 cm in short axis dimension. SALIVARY GLANDS: The visualized parotid and submandibular glands demonstrate fairly symmetric attenua tion without focal calcification. THYROID GLAND: There is notable beam hardening artifact given the patient's body habitus and bony str uctures along the lower neck. However, the thyroid gland appears to demonstrate appropriate size and contour. PARANASAL SINUSES: There is mild to moderate mucosal thickening along the inferior left maxillary sin us. SPINE: There is mild reversal of the cervical lordosis. The cervical spine otherwise appears unremark able. VASCULAR STRUCTURES: Vascular structures are grossly normal in appearance. Surrounding soft tissues are otherwise grossly normal. IMPRESSION: 1. There are inflammatory changes involving the left buccal soft tissues which appear to be an odonto genic basis given the mild lucency surrounding the posterior left maxillary molar. No definitive foca l fluid collections are identified to indicate abscess on the current exam. Signer Name: Salvador Roa MD Signed: 02/01/2020 4:47 PM Workstation Name: [id number]
[2020-02-01 17:26] VITALS: BP 116/64
== END 2020-02-01 17:25 | disposition home or self-care (01) ==
LOC: ED 11:24
DX: K04.7 Periapical abscess without sinus (principal); E11.9 Type 2 diabetes mellitus without complications; J45.909 Unspecified asthma, uncomplicated; Z79.899 Other long term (current) drug therapy
CPT/HCPCS: 36415; 70491; 80053; 84703; 85025; 99284; Q9967; Q0162

== ENCOUNTER 2020-05-01 21:06 | Emergency (ER) | payer SELFPAY ==
[2020-05-02] MEDS ORDERED: SODIUM CHLORIDE 0.9% 1000 ML 1,000 ML IV ONE (00:08)
[2020-05-02] MEDS ORDERED: methylPREDNISolone Sod Succinate 125 MG/2 ML INJ IV ONE (00:08)
--- NOTE | 2020-05-02 00:12 | Emergency Department Report ---
ED Headache HPI - General Chief Complaint: Headache Stated Complaint: SEVERE HEADACHE Time Seen by Provider: 05/02/20 00:05 Source: patient Exam Limitations: no limitations - History of Present Illness Initial Comments: Patient is a 24-year-old female who presents emergency room with complaints of headache x3 days. Patient states the headache is in the frontal region. Patient states is nonradiating. Patient denies neck stiffness. Patient denies fever and chills. Patient denies blurry vision. Patient denies visual changes. Patient denies chest pain and shortness of breath. Patient denies nausea and vomiting. Patient denies light sensitivity. Patient states she feels like she is having a migraine. Patient dates she is at a higher migraine once in the past. Patient states she has taken Tylenol, ibuprofen and Excedrin and has had no relief from them. Patient states that her headache is worsening. Patient states that the pain is a 9 out of 10. Patient denies recent travel. Patient denies recent international travel. Patient denies exposure to the novel coronavirus. Patient denies sick contacts. Patient denies fever and chills. Patient denies cough. Patient denies diarrhea. Patient denies coming in contact with anybody with symptoms of the novel coronavirus. Timing/Duration: other (3 days) Quality: severe Head Injury Location: frontal Recent Head Trauma: no recent headache/trauma, occasional headaches Modifying Factors: improves with: movement, rest Associated Symptoms: denies: confusion, fatigue, facial pain, fever/chills, flushing, loss of consciousness, nausea/vomiting, nasal congestion, nasal drainage, numbness in legs/feet, rash, seizures, sinus infection, stiff neck, vision changes, weakness Allergies/Adverse Reactions: Allergies No Known Allergies Allergy (Verified 10/13/15 20:18) Home Medications: Ambulatory Orders Cyclobenzaprine HCl [Flexeril 5 MG TAB] 5 mg PO Q8HR PRN #10 tab 10/13/15 Ibuprofen [Motrin] 600 mg PO Q8H PRN #12 tablet 06/13/17 medroxyPROGESTERone ACETATE [Provera] 10 mg PO DAILY 10 Days #10 tablet 05/05/19 Ibuprofen [Motrin 800 MG tab] 800 mg PO Q8HR #30 tablet 01/11/20 Acetaminophen/Codeine [Tylenol /Codeine # 3 tab] 1 tab PO Q6H PRN #6 tab 02/01/20 Clindamycin [Clindamycin CAP] 300 mg PO Q6H 10 Days #40 capsule 02/01/20 Ibuprofen [Motrin 800 MG tab] 800 mg PO Q8HR PRN #20 tablet 02/01/20 Azithromycin [Zithromax Tri-Brice] 500 mg PO DAILY 3 Days #3 tablet 05/02/20 methylPREDNISolone [Medrol 4MG DOSEPAK (21 tabs)] 4 mg PO DAILY 6 Days #1 tab.ds.pk 05/02/20 ED Review of Systems ROS: Stated complaint: SEVERE HEADACHE Other details as noted in HPI Constitutional: denies: chills, fever Eyes: denies: eye pain, eye discharge, vision change ENT: denies: ear pain, throat pain Respiratory: denies: cough, shortness of breath, wheezing Cardiovascular: denies: chest pain, palpitations Endocrine: no symptoms reported Gastrointestinal: denies: abdominal pain, nausea, diarrhea Genitourinary: denies: urgency, dysuria, discharge Musculoskeletal: denies: back pain, joint swelling, arthralgia Skin: denies: rash, lesions Neurological: as per HPI, headache. denies: weakness, paresthesias Psychiatric: denies: anxiety, depression Hematological/Lymphatic: denies: easy bleeding, easy bruising ED Past Medical Hx - Past Medical History Previous Medical History?: Yes Hx Diabetes: Yes (borderline) Hx Asthma: Yes - Surgical History Past Surgical History?: No - Family History Family history: no significant - Social History Smoking Status: Current Every Day Smoker Substance Use Type: None - Medications Home Medications: Home Medications Medication Instructions Recorded Confirmed Last Taken Type Cyclobenzaprine HCl [Flexeril 5 MG 5 mg PO Q8HR PRN #10 tab 10/13/15 Unknown Rx TAB] Ibuprofen [Motrin] 600 mg PO Q8H PRN #12 tablet 06/13/17 Unknown Rx medroxyPROGESTERone ACETATE 10 mg PO DAILY 10 Days #10 tablet 05/05/19 Unknown Rx [Provera] Ibuprofen [Motrin 800 MG tab] 800 mg PO Q8HR #30 tablet 01/11/20 Unknown Rx Acetaminophen/Codeine [Tylenol 1 tab PO Q6H PRN #6 tab 02/01/20 Unknown Rx /Codeine # 3 tab] Clindamycin [Clindamycin CAP] 300 mg PO Q6H 10 Days #40 capsule 02/01/20 Unknown Rx Ibuprofen [Motrin 800 MG tab] 800 mg PO Q8HR PRN #20 tablet 02/01/20 Unknown Rx Azithromycin [Zithromax Tri-Brice] 500 mg PO DAILY 3 Days #3 tablet 05/02/20 Unknown Rx methylPREDNISolone [Medrol 4MG 4 mg PO DAILY 6 Days #1 tab.ds.pk 05/02/20 Unknown Rx DOSEPAK (21 tabs)] ED Physical Exam - General Limitations: No Limitations General appearance: alert, in no apparent distress - Head Head exam: Present: atraumatic, normocephalic - Eye Eye exam: Present: normal appearance, PERRL Pupils: Present: normal accommodation - ENT ENT exam: Present: mucous membranes dry, other (Enlarged nasal turbinates noted. Purulent discharge noted on the nasal turbinates. Patient has maxillary and ethmoid tenderness to palpation.) - Neck Neck exam: Present: normal inspection, full ROM. Absent: tenderness, meningismus - Respiratory Respiratory exam: Present: normal lung sounds bilaterally. Absent: respiratory distress - Cardiovascular Cardiovascular Exam: Present: regular rate, normal rhythm. Absent: systolic murmur, diastolic murmur, rubs, gallop - GI/Abdominal GI/Abdominal exam: Present: soft, normal bowel sounds. Absent: distended, tenderness, guarding - Extremities Exam Extremities exam: Present: normal inspection, full ROM - Back Exam Back exam: Present: normal inspection, full ROM - Neurological Exam Neurological exam: Present: alert, oriented X3, CN II-XII intact, normal gait - Psychiatric Psychiatric exam: Present: normal affect, normal mood - Skin Skin exam: Present: warm, dry, intact, normal color. Absent: rash ED Course Vital Signs 05/01/20 05/01/20 05/02/20 21:41 23:44 01:18 Temperature 99.1 F Pulse Rate 116 H 99 H 97 H Respiratory 18 18 18 Rate Blood Pressure 149/100 Blood Pressure 132/84 116/74 [Right] O2 Sat by Pulse 97 100 99 Oximetry - Reevaluation(s) Reevaluation #1: Patient states her head is better. Patient states she is ready to go. I discussed all results and clinical findings with patient. I discussed plan of care with patient. Patient agrees with plan of care. Patient is stable for discharge. Patient will be discharged home. Patient given discharge instructions. Patient voiced understanding of discharge instructions. 05/02/20 01:25 ED Medical Decision Making - Lab Data Result diagrams: 05/02/20 00:15 05/02/20 00:15 - Medical Decision Making Patient is a 24-year-old female who presents emergency room with complaints of severe headache that is not responding to [id number] therapies. Patient has a severe headache. Patient given fluids and steroids and her headache improved. Patient had labs done which were essentially unremarkable. Patient is stable for discharge. Patient will be discharged home with antibiotics and a steroid pack. Patient given discharge instructions. - Differential Diagnosis Sinusitis, headache, migraine, cluster headache, tension headache Critical care attestation.: If time is entered above; I have spent that time in minutes in the direct care of this critically ill patient, excluding procedure time. ED Disposition Clinical Impression: Headache Qualifiers: Headache type: unspecified Headache chronicity pattern: acute headache Intractability: intractable Qualified Code(s): R51.9 - Headache, unspecified Sinusitis Qualifiers: Sinusitis location: frontal Chronicity: acute Recurrence: non-recurrent Qualified Code(s): J01.10 - Acute frontal sinusitis, unspecified Disposition: DC-01 TO HOME OR SELFCARE Is pt being admited?: No Does the pt Need Aspirin: No Condition: Stable Instructions: Sinus Headache, Sinusitis, Adult, [id number] Additional Instructions: Patient to follow-up with primary care in 2 to 3 days. Patient to rest. Patient to increase water. Patient to take Tylenol or ibuprofen as needed for pain. Patient to take meds as directed. Patient to return to the ER if co ndition worsens, changes or new symptoms arise. Prescriptions: methylPREDNISolone [Medrol 4MG DOSEPAK (21 tabs)] 4 mg PO DAILY 6 Days #1 tab.ds.pk Azithromycin [Zithromax Tri-Brice] 500 mg PO DAILY 3 Days #3 tablet Referrals: KUSUM ANDREA MD [Staff Physician] - 2-3 Days Time of Disposition: 01:37
[2020-05-02 00:35] LABS: Basophils # (Auto) 0.1 K/mm3 (0.0-0.1); Basophils % (Auto) 0.7 % (0.0-1.8); Eosinophils # (Auto) 0.2 K/mm3 (0.0-0.4); Eosinophils % (Auto) 2.2 % (0.0-4.3); Hematocrit 34.3 % (30.3-42.9); Hemoglobin 10.7 gm/dl (10.1-14.3); Lymphocytes # (Auto) 2.8 K/mm3 (1.2-5.4); Lymphocytes % (Auto) 37.9 % (13.4-35.0); Mean Corpuscular HGB Conc 31 % (30-34); Mean Corpuscular Volume 80 fl (79-97); Monocytes # (Auto) 0.4 K/mm3 (0.0-0.8); Monocytes % (Auto) 5.5 % (0.0-7.3); Platelet Count 240 K/mm3 (140-440); Red Blood Count 4.31 M/mm3 (3.65-5.03); Red Cell Distribution Width 16.8 % (13.2-15.2)
[2020-05-02 00:59] LABS: Alanine Aminotransferase 15 units/L (7-56); Albumin 3.9 g/dL (3.9-5); BUN/Creatinine Ratio 5; Blood Urea Nitrogen 5 mg/dL (7-17); Calcium 8.5 mg/dL (8.4-10.2); Hemolysis Index 57
[2020-05-02 01:19] VITALS: BP 116/74
== END 2020-05-02 01:57 | disposition home or self-care (01) ==
LOC: ED 21:06
DX: J01.10 Acute frontal sinusitis, unspecified (principal); R51.9 Headache, unspecified; E11.9 Type 2 diabetes mellitus without complications; J45.909 Unspecified asthma, uncomplicated; F17.200 Nicotine dependence, unspecified, uncomplicated; Z79.899 Other long term (current) drug therapy
CPT/HCPCS: 36415; 80053; 84703; 85025; 96361; 96374; 99283; J2930; J7030

== ENCOUNTER 2021-01-26 19:02 | Emergency (ER) | payer SELFPAY | END 2021-01-28 05:14 | disposition left against medical advice (07) | LOC: ED 19:02 | DX: R22.43 Localized swelling, mass and lump, lower limb, bilateral (principal); Z53.21 Procedure and treatment not carried out due to patient leaving prior to being seen by health care provider ==

== ENCOUNTER 2021-07-12 23:46 | Emergency (ER) | payer SELFPAY ==
[2021-07-12 23:52] VITALS: BP 157/108
--- NOTE | 2021-07-13 00:56 | Emergency Department Report ---
ED Extremity Problem HPI - General Chief complaint: Extremity Problem,Nontraumatic Stated complaint: BILATERAL LEG PAIN Source: patient Mode of arrival: Ambulatory Limitations: No Limitations - History of Present Illness Initial comments: Patient is a 25-year-old -[place] female with a history of gout hepatopathy, chronic osteoarthritis, morbid obesity and hypertension who presents to the ED with complaint of acute onset persistent bilateral knee pain with swelling for the last 3 weeks. Patient states that the pain is especially worse when she wakes up in the morning or when climbing the stairs. Patient denies fall, nausea and vomiting, fever, chills, chest pain or shortness of breath, numbness and tingling or weakness of upper and lower extremities bilaterally, traumatic injury, back pain or hip pain. MD Complaint: extremity pain (BILATERAL KNEE PAIN) -: Gradual, week(s) (3) Location: bilateral lower extremity, knee History of Same: Yes -: Yes arthralgia, No fever, No associated dyspnea, No associated chest pain Radiation: none Severity scale (0 -10): 8 Quality: aching, sharp Consistency: constant Improves with: rest Worsens with: weight bearing, walking, exertion, palpation Associated Symptoms: denies other symptoms, arthralgias (Bilateral knee pain). denies: chest pain, shortness of breath, fever, myalgias, rash, other - Related Data Previous Rx's Medication Instructions Recorded Last Taken Type Cyclobenzaprine HCl [Flexeril 5 MG 5 mg PO Q8HR PRN #10 tab 10/13/15 Unknown Rx TAB] Ibuprofen [Motrin] 600 mg PO Q8H PRN #12 tablet 06/13/17 Unknown Rx medroxyPROGESTERone ACETATE 10 mg PO DAILY 10 Days #10 tablet 05/05/19 Unknown Rx [Provera] Acetaminophen/Codeine [Tylenol 1 tab PO Q6H PRN #6 tab 02/01/20 Unknown Rx /Codeine # 3 tab] Clindamycin [Clindamycin CAP] 300 mg PO Q6H 10 Days #40 capsule 02/01/20 Unknown Rx Ibuprofen [Motrin 800 MG tab] 800 mg PO Q8HR PRN #20 tablet 02/01/20 Unknown Rx Azithromycin [Zithromax Tri-Brice] 500 mg PO DAILY 3 Days #3 tablet 05/02/20 Unknown Rx methylPREDNISolone [Medrol 4MG 4 mg PO DAILY 6 Days #1 tab.ds.pk 05/02/20 Unknown Rx DOSEPAK (21 tabs)] Ibuprofen [Motrin 800 MG tab] 800 mg PO Q8HR PRN #40 tablet 07/13/21 Unknown Rx predniSONE [Deltasone] 60 mg PO QDAY #15 tab 07/13/21 Unknown Rx traMADoL [Ultram] 50 mg PO Q6HR PRN #12 tablet 07/13/21 Unknown Rx Allergies Allergy/AdvReac Type Severity Reaction Status Date / Time No Known Allergies Allergy Verified 10/13/15 20:18 ED Review of Systems ROS: Stated complaint: BILATERAL LEG PAIN Other details as noted in HPI Constitutional: denies: chills, fever Eyes: denies: eye pain, eye discharge, vision change ENT: denies: ear pain, throat pain Respiratory: denies: cough, shortness of breath, wheezing Cardiovascular: denies: chest pain, palpitations Endocrine: no symptoms reported Gastrointestinal: denies: abdominal pain, nausea, diarrhea Genitourinary: denies: urgency, dysuria, discharge Musculoskeletal: arthralgia (Bilateral knee pain). denies: back pain, joint swelling, myalgia Skin: denies: rash, lesions Neurological: denies: headache, weakness, paresthesias Psychiatric: denies: anxiety, depression Hematological/Lymphatic: denies: easy bleeding, easy bruising ED Past Medical Hx - Past Medical History Hx Diabetes: Yes (borderline) Hx Asthma: Yes - Social History Smoking Status: Current Every Day Smoker Substance Use Type: None - Medications Home Medications: Home Medications Medication Instructions Recorded Confirmed Last Taken Type Cyclobenzaprine HCl [Flexeril 5 MG 5 mg PO Q8HR PRN #10 tab 10/13/15 Unknown Rx TAB] Ibuprofen [Motrin] 600 mg PO Q8H PRN #12 tablet 06/13/17 Unknown Rx medroxyPROGESTERone ACETATE 10 mg PO DAILY 10 Days #10 tablet 05/05/19 Unknown Rx [Provera] Acetaminophen/Codeine [Tylenol 1 tab PO Q6H PRN #6 tab 02/01/20 Unknown Rx /Codeine # 3 tab] Clindamycin [Clindamycin CAP] 300 mg PO Q6H 10 Days #40 capsule 02/01/20 Unknown Rx Ibuprofen [Motrin 800 MG tab] 800 mg PO Q8HR PRN #20 tablet 02/01/20 Unknown Rx Azithromycin [Zithromax Tri-Brice] 500 mg PO DAILY 3 Days #3 tablet 05/02/20 Unknown Rx methylPREDNISolone [Medrol 4MG 4 mg PO DAILY 6 Days #1 tab.ds.pk 05/02/20 Unknown Rx DOSEPAK (21 tabs)] Ibuprofen [Motrin 800 MG tab] 800 mg PO Q8HR PRN #40 tablet 07/13/21 Unknown Rx predniSONE [Deltasone] 60 mg PO QDAY #15 tab 07/13/21 Unknown Rx traMADoL [Ultram] 50 mg PO Q6HR PRN #12 tablet 07/13/21 Unknown Rx ED Physical Exam - General Limitations: No Limitations General appearance: alert, in no apparent distress - Head Head exam: Present: atraumatic, normocephalic, normal inspection - Eye Eye exam: Present: normal appearance, PERRL, EOMI Pupils: Present: normal accommodation - ENT ENT exam: Present: normal exam, normal orophraynx, mucous membranes moist, TM's normal bilaterally, normal external ear exam - Neck Neck exam: Present: normal inspection, full ROM. Absent: tenderness - Respiratory Respiratory exam: Present: normal lung sounds bilaterally. Absent: respiratory distress, wheezes, rales, rhonchi, chest wall tenderness, accessory muscle use, decreased breath sounds, prolonged expiratory - Cardiovascular Cardiovascular Exam: Present: normal rhythm, tachycardia, normal heart sounds. Absent: systolic murmur, diastolic murmur, rubs, gallop - GI/Abdominal GI/Abdominal exam: Present: soft, normal bowel sounds. Absent: tenderness, gu arding, rebound, hyperactive bowel sounds, hypoactive bowel sounds, organomegaly, bruit - Extremities Exam Extremities exam: Present: normal inspection, full ROM, tenderness (Palpable bilateral knee tenderness with mild swelling), normal capillary refill, joint swelling (Mild swelling of bilateral knees). Absent: pedal edema, calf tenderness - Back Exam Back exam: Present: normal inspection, full ROM. Absent: tenderness, CVA tenderness (R), CVA tenderness (L), muscle spasm, paraspinal tenderness, vertebral tenderness - Neurological Exam Neurological exam: Present: alert, oriented X3, CN II-XII intact, normal gait, reflexes normal - Psychiatric Psychiatric exam: Present: normal affect, normal mood - Skin Skin exam: Present: warm, dry, intact, normal color. Absent: rash ED Course Vital Signs 07/12/21 23:50 Temperature 98.4 F Pulse Rate 101 H Respiratory 18 Rate Blood Pressure 157/108 O2 Sat by Pulse 88 Oximetry ED Medical Decision Making - Medical Decision Making This is a 25-year-old -[place] female with a history of gout hepatopathy, chronic osteoarthritis, morbid obesity and hypertension who presents to the ED with complaint of acute onset persistent bilateral knee pain with swelling for the last 3 weeks. Patient states that the pain is especially worse when she wakes up in the morning or when climbing the stairs. In the ED, patient is alert and oriented x3 and is not in any distress. Patient was treated for pain in the ED. Patient was discharged home on medication and advised to follow-up with her primary care physician in 7 to 10 days for reevaluation. Patient advised to return to the ED immediately if symptoms get worse. - Differential Diagnosis Osteoarthritis; tendinitis; gout; muscle strain; muscle Critical care attestation.: If time is entered above; I have spent that time in minutes in the direct care of this critically ill patient, excluding procedure time. ED Disposition Clinical Impression: Bilateral chronic knee pain Muscle strain of knee Qualifiers: Encounter type: initial encounter Laterality: unspecified laterality Qualified Code(s): S86.919A - Strain of unspecified muscle(s) and tendon(s) at lower leg level, unspecified leg, initial encounter Osteoarthritis of knees, bilateral Qualifiers: Osteoarthritis type: primary Qualified Code(s): M17.0 - Bilateral primary osteoarthritis of knee Disposition: 01 HOME / SELF CARE / HOMELESS Is pt being admited?: No Does the pt Need Aspirin: No Condition: Stable Instructions: Chronic Knee Pain, Adult, [id number], Muscle Strain, [id number], Joint Pain, [id number], Arthritis, [id number] Additional Instructions: Take medication with food, drink plenty of fluids, follow-up with your primary care physician in 7 to 10 days for reevaluation. Return to the ED immediately if symptoms get worse. Prescriptions: predniSONE [Deltasone] 60 mg PO QDAY #15 tab Ibuprofen [Motrin 800 MG tab] 800 mg PO Q8HR PRN #40 tablet PRN Reason: Pain , Severe (7-10) traMADoL [Ultram] 50 mg PO Q6HR PRN #12 tablet PRN Reason: Pain Referrals: [facility] [Provider Group] - 7-10 days Time of Disposition: 00:57 Print Language: KHMER
[2021-07-13] MEDS ORDERED: KETOROLAC 60 MG/2 ML INJ IM ONE (01:03)
[2021-07-13] MEDS ORDERED: predniSONE 20 MG TAB PO ONE (01:03)
== END 2021-07-13 01:41 | disposition home or self-care (01) ==
LOC: ED 23:46
DX: S86.912A Strain of unspecified muscle(s) and tendon(s) at lower leg level, left leg, initial encounter (principal); S86.911A Strain of unspecified muscle(s) and tendon(s) at lower leg level, right leg, initial encounter; M17.0 Bilateral primary osteoarthritis of knee; X58.XXXA Exposure to other specified factors, initial encounter; Y93.89 Activity, other specified; Y92.89 Other specified places as the place of occurrence of the external cause; Y99.8 Other external cause status
CPT/HCPCS: 96372; 99282; J1885

== ENCOUNTER 2021-08-12 13:16 | Emergency (ER) | payer SELFPAY ==
[2021-08-12 14:44] VITALS: BP 151/100
--- NOTE | 2021-08-12 15:01 | Emergency Department Report ---
ED Extremity Problem HPI - General Chief complaint: Extremity Injury, Lower Stated complaint: KNEE PAIN BOTH/ R LEG NUMBNESS Source: patient Mode of arrival: Ambulatory Limitations: No Limitations - History of Present Illness Initial comments: 25-year-old black female with no past medical history presents to the emergency department for evaluation of bilateral knee pain. She denies trauma or injury, and states that she has had persistent knee pain for many months for which she is scheduled to see an orthopedic surgeon for next month. MD Complaint: extremity pain, extremity swelling, joint swelling -: Gradual, week(s) (2) Location: bilateral lower extremity, knee History of Same: Yes -: No myalgia, No arthralgia, No fever, No associated dyspnea, No associated chest pain Radiation: none Severity scale (0 -10): 10 Quality: aching Consistency: constant Worsens with: weight bearing Associated Symptoms: denies other symptoms - Related Data Previous Rx's Medication Instructions Recorded Last Taken Type Cyclobenzaprine HCl [Flexeril 5 MG 5 mg PO Q8HR PRN #10 tab 10/13/15 Unknown Rx TAB] Ibuprofen [Motrin] 600 mg PO Q8H PRN #12 tablet 06/13/17 Unknown Rx medroxyPROGESTERone ACETATE 10 mg PO DAILY 10 Days #10 tablet 05/05/19 Unknown Rx [Provera] Acetaminophen/Codeine [Tylenol 1 tab PO Q6H PRN #6 tab 02/01/20 Unknown Rx /Codeine # 3 tab] Clindamycin [Clindamycin CAP] 300 mg PO Q6H 10 Days #40 capsule 02/01/20 Unknown Rx Ibuprofen [Motrin 800 MG tab] 800 mg PO Q8HR PRN #20 tablet 02/01/20 Unknown Rx Azithromycin [Zithromax Tri-Brice] 500 mg PO DAILY 3 Days #3 tablet 05/02/20 Unknown Rx methylPREDNISolone [Medrol 4MG 4 mg PO DAILY 6 Days #1 tab.ds.pk 05/02/20 Unknown Rx DOSEPAK (21 tabs)] Ibuprofen [Motrin 800 MG tab] 800 mg PO Q8HR PRN #40 tablet 07/13/21 Unknown Rx predniSONE [Deltasone] 60 mg PO QDAY #15 tab 07/13/21 Unknown Rx traMADoL [Ultram] 50 mg PO Q6HR PRN #12 tablet 07/13/21 Unknown Rx Lidocaine [Lidoderm] 1 each TP DAILY PRN #10 patch 08/12/21 Unknown Rx Naproxen [Naprosyn] 500 mg PO BID #14 tab 08/12/21 Unknown Rx methylPREDNISolone [Medrol 4MG 4 mg PO DAILY #1 pack 08/12/21 Unknown Rx DOSEPAK (21 tabs)] Allergies Allergy/AdvReac Type Severity Reaction Status Date / Time No Known Allergies Allergy Verified 10/13/15 20:18 ED Review of Systems ROS: Stated complaint: KNEE PAIN BOTH/ R LEG NUMBNESS Other details as noted in HPI Constitutional: denies: chills, fever ENT: denies: dental pain, congestion Respiratory: denies: shortness of breath Cardiovascular: denies: chest pain, palpitations Gastrointestinal: denies: abdominal pain, nausea, vomiting Musculoskeletal: denies: back pain Neurological: denies: headache, weakness ED Past Medical Hx - Past Medical History Hx Diabetes: Yes (borderline) Hx Arthritis: Yes (bilateral knee) Hx Asthma: Yes Additional medical history: obesity - Surgical History Past Surgical History?: No - Social History Smoking Status: Current Every Day Smoker Substance Use Type: None - Medications Home Medications: Home Medications Medication Instructions Recorded Confirmed Last Taken Type Cyclobenzaprine HCl [Flexeril 5 MG 5 mg PO Q8HR PRN #10 tab 10/13/15 Unknown Rx TAB] Ibuprofen [Motrin] 600 mg PO Q8H PRN #12 tablet 06/13/17 Unknown Rx medroxyPROGESTERone ACETATE 10 mg PO DAILY 10 Days #10 tablet 05/05/19 Unknown Rx [Provera] Acetaminophen/Codeine [Tylenol 1 tab PO Q6H PRN #6 tab 02/01/20 Unknown Rx /Codeine # 3 tab] Clindamycin [Clindamycin CAP] 300 mg PO Q6H 10 Days #40 capsule 02/01/20 Unknown Rx Ibuprofen [Motrin 800 MG tab] 800 mg PO Q8HR PRN #20 tablet 02/01/20 Unknown Rx Azithromycin [Zithromax Tri-Brice] 500 mg PO DAILY 3 Days #3 tablet 05/02/20 Unknown Rx methylPREDNISolone [Medrol 4MG 4 mg PO DAILY 6 Days #1 tab.ds.pk 05/02/20 Unknown Rx DOSEPAK (21 tabs)] Ibuprofen [Motrin 800 MG tab] 800 mg PO Q8HR PRN #40 tablet 07/13/21 Unknown Rx predniSONE [Deltasone] 60 mg PO QDAY #15 tab 07/13/21 Unknown Rx traMADoL [Ultram] 50 mg PO Q6HR PRN #12 tablet 07/13/21 Unknown Rx Lidocaine [Lidoderm] 1 each TP DAILY PRN #10 patch 08/12/21 Unknown Rx Naproxen [Naprosyn] 500 mg PO BID #14 tab 08/12/21 Unknown Rx methylPREDNISolone [Medrol 4MG 4 mg PO DAILY #1 pack 08/12/21 Unknown Rx DOSEPAK (21 tabs)] ED Physical Exam - General Limitations: No Limitations General appearance: alert, in no apparent distress - Head Head exam: Present: atraumatic, normocephalic - Eye Eye exam: Present: normal appearance. Absent: conjunctival injection - Neck Neck exam: Present: normal inspection. Absent: tenderness - Respiratory Respiratory exam: Absent: respiratory distress - Cardiovascular Cardiovascular Exam: Present: regular rate - GI/Abdominal GI/Abdominal exam: Absent: distended - Expanded Lower Extremity Exam Left Upper Leg exam: Present: normal inspection Knee exam: Present: normal inspection, full ROM, tenderness. Absent: swelling, abrasion, laceration, ecchymosis, deformity, crepidus, dislocation, erythema, effusion Lower Leg exam: Present: normal inspection Neuro vascular tendon exam: Present: no vascular compromise. Absent: pulse deficit, abnormal cap refill, motor deficit, extremity cold to touch, pallor Gait: Positive: observed and normal Right Upper Leg exam: Present: normal inspection Knee exam: Present: normal inspection, full ROM, tenderness. Absent: swelling, abrasion, laceration, ecchymosis, deformity, crepidus, dislocation Lower Leg exam: Present: normal inspection Ankle exam: Present: normal inspection Neuro vascular tendon exam: Present: no vascular compromise. Absent: pulse deficit, abnormal cap refill, motor deficit, extremity cold to touch, pallor Gait: Positive: observed and normal - Back Exam Back exam: Present: normal inspection - Neurological Exam Neurological exam: Present: alert, oriented X3, normal gait - Psychiatric Psychiatric exam: Present: normal affect, normal mood - Skin Skin exam: Present: warm, dry, intact, normal color ED Course Vital Signs 08/12/21 14:39 Temperature 98.9 F Pulse Rate 97 H Respiratory 17 Rate Blood Pressure 151/100 [Left] O2 Sat by Pulse 98 Oximetry ED Medical Decision Making - Medical Decision Making 24-year-old black male with a past medical history of PTSD and anxiety presents to the emergency department requesting medication refill. He states that he has not taken medications for anxiety in several weeks, but last night, he witnessed one of his friends thigh which caused him to have high anxiety and he has not been able to sleep since then. He denies SI and HI. Physical exam unremarkable. Patient will be treated for chronic knee pain and sciatic pain with Medrol Dosepak, naproxen, and Lidoderm patches. She is advised to take medications as prescribed and follow-up with orthopedics as planned. She is advised to return to the emergency department as needed. She verbalizes understanding of and agreement with plan of care. Critical care attestation.: If time is entered above; I have spent that time in minutes in the direct care of this critically ill patient, excluding procedure time. ED Disposition Clinical Impression: Sciatica of right side without back pain Bilateral knee pain Qualifiers: Chronicity: chronic Qualified Code(s): M25.561 - Pain in right knee Disposition: 01 HOME / SELF CARE / HOMELESS Is pt being admited?: No Does the pt Need Aspirin: No Condition: Stable Instructions: Chronic Knee Pain, Adult, [id number], How to Use Cold Therapy, [id number], Musculoskeletal Pain, Joint Pain, [id number] Additional Instructions: Take medications as prescribed. Follow-up with orthopedics as previously planned. Return to the emergency department as needed. Prescriptions: Lidocaine [Lidoderm] 1 each TP DAILY PRN #10 patch PRN Reason: Pain, Moderate (4-6) methylPREDNISolone [Medrol 4MG DOSEPAK (21 tabs)] 4 mg PO DAILY #1 pack Naproxen [Naprosyn] 500 mg PO BID #14 tab Referrals: OBI MCDONALD MD [Staff Physician] - 3-5 Days KUSUM ANDREA MD [Staff Physician] - 3-5 Days Forms: Work/School Release Form(ED) Time of Disposition: 15:01
== END 2021-08-12 16:00 | disposition home or self-care (01) ==
LOC: ED 13:16
DX: M54.31 Sciatica, right side (principal); M25.561 Pain in right knee; M25.562 Pain in left knee; J45.909 Unspecified asthma, uncomplicated; F17.200 Nicotine dependence, unspecified, uncomplicated; Z79.899 Other long term (current) drug therapy
CPT/HCPCS: 99282